=== PATIENT | male | born 1975 | race African-American/Black ===

== ENCOUNTER 2020-09-30 21:37 | Observation (INO) | payer SELFPAY ==
[2020-10-01] MEDS ORDERED: Acetaminophen 500 MG TAB PO PRN (00:51)
[2020-10-01] MEDS ORDERED: Morphine 2 MG/ML VIAL SLOW IVP PRN (00:53)
[2020-10-01 01:18] VITALS: BMI 31.0
[2020-10-01] MEDS: Ketorolac Tromethamine 30 MG/ML VIAL IVP SCH ×3 (01:45→12:21)
[2020-10-01] MEDS: Clindamycin/D5W 900 MG in Premix Bag 1 BAG IVPB SCH ×2 (06:23→16:51)
[2020-10-01] MEDS ORDERED: Ondansetron PF 4 MG/2 ML Vial ONE (09:35)
[2020-10-01] MEDS ORDERED: Dexamethasone 20 MG/5 ML VIAL ONE (09:35)
[2020-10-01] MEDS ORDERED: PHENYLEPHRINE-NS 100 MCG/ML 10 ML SYRINGE ONE (09:35)
[2020-10-01] MEDS ORDERED: PROPOFOL 200 MG/20 ML VIAL ONE (09:35)
[2020-10-01] MEDS ORDERED: Lidocaine 1% PF 5 ML VIAL ONE (09:35)
[2020-10-01 10:51] VITALS: BP 142/77; TEMP 98
[2020-10-01] MEDS ORDERED: Bacitracin Zinc Ointment 30 gm TUBE ONE (13:25)
[2020-10-01] MEDS ORDERED: Betamet Acet/Betamet Na Ph 30 MG/5 ML VIAL ONE (13:25)
[2020-10-01] MEDS ORDERED: Clindamycin/D5W 900 mg/50 ml Premix Bag ONE (13:25)
[2020-10-01] MEDS ORDERED: Sodium Chloride 0.9% 30 ML ONE (13:25)
[2020-10-01] MEDS ORDERED: Bupivacaine PF 0.5% 30 ML VIAL ONE (13:25)
[2020-10-01] MEDS ORDERED: HYDROmorphone 0.5 MG/0.5 ML SYRINGE ONE (13:30)
[2020-10-01] MEDS ORDERED: Promethazine HCl 25 MG/ML VIAL IM PRN (16:27)
[2020-10-01] MEDS ORDERED: Ondansetron HCl/PF 4 MG/2 ML Vial IVP PRN (16:27)
[2020-10-01] MEDS ORDERED: Promethazine HCl 25 MG/ML VIAL SLOW IVP PRN (16:27)
== END 2020-10-01 19:37 | disposition home or self-care (01) ==
LOC: SURG A 21:37
PROVIDERS: ADMIT Orthopaedic Surgery Hand Surgery; ATTEND Orthopaedic Surgery Hand Surgery
PROC: 0JBK0ZZ Excision of Left Hand Subcutaneous Tissue and Fascia, Open Approach (ICD-10-PCS; principal; 2020-10-01)
PROC: 0LQ80ZZ Repair Left Hand Tendon, Open Approach (ICD-10-PCS; 2020-10-01)
PROC: 0LQ80ZZ Repair Left Hand Tendon, Open Approach (ICD-10-PCS; 2020-10-01)
DX: S66.222A Laceration of extensor muscle, fascia and tendon of left thumb at wrist and hand level, initial encounter (principal); S62.202B Unspecified fracture of first metacarpal bone, left hand, initial encounter for open fracture; Z88.0 Allergy status to penicillin; Z88.5 Allergy status to narcotic agent; Z91.041 Radiographic dye allergy status; W31.89XA Contact with other specified machinery, initial encounter
CPT/HCPCS: 96374; 96375; 96376; G0378; J0702; J1100; J1170; J1885; J2405; J2704; J3490; S0020

== ENCOUNTER 2021-08-17 12:08 | Emergency (ER) | payer SELFPAY ==
[2021-08-17 21:30] LABS: SARS-CoV-2 PCR by NAA DETECTED (NotDetected)
== END 2021-08-17 13:05 | disposition home or self-care (01) ==
LOC: ERS 12:08
DX: U07.1 COVID-19 (principal)
CPT/HCPCS: 71045; U0003; U0005